=== PATIENT | female | born 1985 | race Caucasian/White ===

== ENCOUNTER 2016-12-14 09:18 | Emergency (ER) | payer OTHER ==
[~2016-12-14] VITALS: Ht 160 cm; Wt 53.0 kg
[~2016-12-14 09:18] MED LIST: AMOX875 PO; BENZ100 PO
[2016-12-14 09:23] VITALS: BP 107/66; PULSE 104; RESP 16; TEMP 98.6; O2SAT 97
[2016-12-14 09:48] LABS: BLOOD, URINE NEG (NEG); GLUCOSE,URINE NEG (NEG); KETONE, URINE NEG (NEG); NITRITE,URINE NEG (NEG)
[2016-12-14 10:00] LABS: URINE COLOR YELLOW (YELLW/STRAW)
[2016-12-14 10:01] LABS: COMMENT (UR) CULT NOT INDICATED; CULTURE IF INDICATED CULT NOT INDICATED; SQUAMOUS EPITHELIAL CELL URINE 0-5 /hpf (0-5); WBC, URINE 0-2 /hpf (0-5)
--- NOTE | 2016-12-14 10:07 | PD ---
HPI Chief Complaint: Related Problem Time Seen by Provider: 09:52 Travel History International Travel<30 days: No Contact w/Intl Traveler<30days: No Traveled to known affect area: No History of Present Illness HPI This is a 32-year-old Ab0, who is reportedly 11 weeks by dates, who presents today with complaints of right lower pelvic pain and vaginal bleeding. Patient states she woke up about 4 AM with lower abdominal crampy pain in her right lower pelvic area. She states that passed a large amount of bright red blood. She denies any clots patient denies any tissue. She reports that she was doing fine up until today. There is no reported dysuria, urgency, frequency. She states the bleeding has subsequently stopped. [facility] Past Medical History Medical History: Denies Significant Hx Diminished Hearing: No ?: LMP: 2 months ago : 2 Para: 1 Past Surgical History Surgical History: No Previous Surgery Social History Alcohol Use: No Tobacco Use: Yes (3 cigarettes a day) Substance Use: No Allergies-Medications (Allergen,Severity, Reaction): Coded Allergies: No Known Allergies (Verified , 12/14/16) Reported Meds & Prescriptions Reported Meds & Active Scripts Active No Active Prescriptions or Reported Medications Review of Systems Except as stated in HPI: all other systems reviewed are Neg General / Constitutional: No: Fever, Chills HENT: No: Headaches, Lightheadedness Cardiovascular: No: Chest Pain or Discomfort, Palpitations Respiratory: No: Cough, Shortness of Breath Gastrointestinal: Positive: Abdominal Pain (right lower pelvic), No: Nausea, Vomiting Genitourinary: Positive: Vaginal Bleeding, No: Frequency, Dysuria, Discharge Musculoskeletal: No: Weakness, Pain Neurologic: No: Weakness, Dizziness, Headache Physical Exam Narrative GENERAL: Well-nourished, well-developed patient, in no acute respiratory distress. SKIN: Focused skin assessment warm/dry. HEAD: Normocephalic/atraumatic. EYES: No scleral icterus. No injection or drainage. NECK: Supple, trachea midline. CARDIOVASCULAR: Regular rate and rhythm without murmurs, gallops, or rubs. RESPIRATORY: Breath sounds equal bilaterally. No accessory muscle use. GASTROINTESTINAL: Abdomen soft, non-tender, nondistended. Subjective right lower pelvic pain/cramping. GENITOURINARY: Normal external genitalia without lesions or erythema. Vaginal vault without blood or drainage. Cervical os was closed to fingertip. I could not appreciate the uterus above the pelvis. MUSCULOSKELETAL: No cyanosis, or edema. NEUROLOGICAL: Awake and alert. Cranial nerves II through XII intact. Motor grossly within normal limits. Five out of 5 muscle strength in all muscle groups. Normal speech. Data Data Last Documented VS Vital Signs Date Time Temp Pulse Resp B/P Pulse Ox O2 Delivery O2 Flow Rate FiO2 12/14/16 09:23 98.6 104 16 107/66 97 Room Air Orders Urinalysis - C+S If Indicated (12/14/16 09:39) Complete Blood Count With Diff (12/14/16 09:55) Beta Hcg (Quant/Titer) (12/14/16 09:55) Us Pelvis (Ques Pr/Ect)W Trans (12/14/16 10:01) Ed Urine Pregnancytest Poc (12/14/16 10:10) Labs Laboratory Tests Test 12/14/16 12/14/16 09:42 10:11 Urine Color YELLOW Urine Turbidity CLEAR Urine pH 6.0 Urine Specific [place] 1.024 Urine Protein NEG mg/dL Urine Glucose (UA) NEG mg/dL Urine Ketones NEG mg/dL Urine Occult Blood NEG Urine Nitrite NEG Urine Bilirubin NEG Urine Leukocyte Esterase NEG Urine WBC 0-2 /hpf Urine Squamous Epithelial 0-5 /hpf Cells Microscopic Urinalysis Comment CULT NOT INDICATED White Blood Count 13.4 TH/MM3 Red Blood Count 3.51 MIL/MM3 Hemoglobin 10.8 GM/DL Hematocrit 31.6 % Mean Corpuscular Volume 89.8 FL Mean Corpuscular Hemoglobin 30.7 PG Mean Corpuscular Hemoglobin 34.1 % Concent Red Cell Distribution Width 11.9 % Platelet Count 217 TH/MM3 Mean Platelet Volume 7.7 FL Neutrophils (%) (Auto) 75.7 % Lymphocytes (%) (Auto) 15.7 % Monocytes (%) (Auto) 6.4 % Eosinophils (%) (Auto) 1.6 % Basophils (%) (Auto) 0.6 % Neutrophils # (Auto) 10.1 TH/MM3 Lymphocytes # (Auto) 2.1 TH/MM3 Monocytes # (Auto) 0.9 TH/MM3 Eosinophils # (Auto) 0.2 TH/MM3 Basophils # (Auto) 0.1 TH/MM3 CBC Comment DIFF FINAL Differential Comment Human Chorionic Gonadotropin, [address] MIU/ML Quant [facility] Medical Decision Making Medical Screen Exam Complete: Yes Emergency Medical Condition: Yes Differential Diagnosis Ectopic versus threatened miscarriage versus complete miscarriage versus placental abruption Narrative Course 31-year-old female presents with complaints of vaginal bleeding. Patient reports she is 11 weeks . The patient had no blood in her vault and her os was closed. Beta-hCG was 60,000. Patient's formal ultrasound shows a 12 week 2 day fetus with normal heart tones. There is also small likely subchorionic hemorrhage noted. I discussed with the patient that this can be a isolated event or this could continue. She is instructed to have pelvic rest until evaluated by a OB physician. I will place a mandatory referral as she has been having difficulty finding an OB physician that will see her with her Medicaid. She is AB+ for her blood type. She is encouraged to take the vitamins. Diagnosis Primary Impression: Threatened miscarriage Additional Impression: small subchorionic hemorrhage Referrals: [facility] Additional Instructions: Pelvic rest until seen by OB physician Scripts No Active Prescriptions or Reported Meds Disposition: 01 DISCHARGE HOME Condition: Stable Vinicius Shepherd MD Dec 14, 2016 10:07
[2016-12-14 10:24] LABS: AUTOMATED NEUTROPHIL # 10.1 TH/MM3 (1.8-7.7); BASOPHIL # 0.1 TH/MM3 (0-0.2); BASOPHIL % 0.6 % (0.0-2.0); EOSINOPHIL # 0.2 TH/MM3 (0-0.4); EOSINOPHIL % 1.6 % (0.0-4.0); HEMATOCRIT 31.6 % (35.0-46.0); HEMO FLAGS DIFF FINAL; LYMPH % 15.7 % (9.0-44.0); LYMPHOCYTE # 2.1 TH/MM3 (1.0-4.8); MEAN CELL VOLUME 89.8 FL (80.0-100.0); MEAN CORPUSCULAR HEMOGLOBIN 30.7 PG (27.0-34.0); MEAN CORPUSCULAR HGB CONC 34.1 % (32.0-36.0); MONO % 6.4 % (0.0-8.0); NEUT % 75.7 % (16.0-70.0); PLATELET COUNT 217 TH/MM3 (150-450); RED BLOOD COUNT 3.51 MIL/MM3 (4.00-5.30); RED CELL DISTRIBUTION WIDTH 11.9 % (11.6-17.2); WHITE BLOOD COUNT 13.4 TH/MM3 (4.0-11.0)
[2016-12-14 10:52] LABS: BETA HCG QUANT 63059 MIU/ML (0-5)
--- NOTE | 2016-12-14 11:31 | RADRPT ---
EXAM DATE/TIME: 12/14/2016 10:25 [place] COMPARISON: No previous studies available for comparison. INDICATIONS : Pelvic pain and bleeding. LAB(S): Beta-hC MEDICAL HISTORY : . SURGICAL HISTORY : None. ENCOUNTER: Initial ACUITY: 1 day PAIN SCORE: 2/10 LOCATION: Bilateral pelvis MEASUREMENTS: UTERUS: 12.8 x 11.0 x 6.7 cm ENDOMETRIAL STRIPE: >20 mm RIGHT OVARY: 4.9 x 2.3 x 2.7 cm LEFT OVARY: 3.1 x 2.0 x 1.4 cm FREE FLUID: No CROWN RUMP LENGTH: 6.03 = 12 WKS 4 DAYS FHR: 167 BPM FINDINGS: UTERUS: The myometrium has homogeneous echotexture without mass. The there is a single intrauterine gestatio nal sac measuring 7.1 x 3.0 x 7.2 cm. Fetus is identified with crown-rump length measurement of 5.8 c m giving an estimated gestational age of 12 weeks and 2 days. M-mode Doppler documents a heart rate of 167 beats per minute. There is a crescentic hypoechoic to anechoic structure adjacent to this gestational sac measuring approximately 2.5 x 0.8 x 1.2 cm. RIGHT OVARY: Ovary contains no mass or significant cystic lesion. LEFT OVARY: Ovary contains no mass or significant cystic lesion. MISCELLANEOUS: No free fluid. CONCLUSION: 1. There is a single fetus identified with estimated age of 12 weeks and 2 days. Normal heart r ate is documented. 2. A crescentic hypoechoic to anechoic structure adjacent to the gestational sac likely represents torres bacute to chronic subchorionic hemorrhage. Severo Wong MD on December 14, 2016 at 11:26 Board Certified Radiologist. This report was verified electronically.
[2016-12-14 12:16] VITALS: BP 93/59
[2017-02-16] MEDS ORDERED: CIPR0.3S LEFT EAR (11:18)
== END 2016-12-14 12:18 | disposition home or self-care (01) ==
LOC: PHED 09:18
DX: O20.0 Threatened abortion (principal); O20.8 Other hemorrhage in early pregnancy; Z3A.11 11 weeks gestation of pregnancy
CPT/HCPCS: 76700; 76817; 81001; 84702; 84703; 85025; 99285

== ENCOUNTER 2017-07-02 02:32 | Inpatient (IN) | payer OTHER ==
[2017-07-02] VITALS (122 sets, daily range): BP systolic 87–125; BP diastolic 42–81; PULSE 61–108; RESP 15–20; TEMP 97.7–100.7; O2SAT 96–100
[~2017-07-02] VITALS: Ht 165.1 cm; Wt 67.0 kg
[2017-07-02] MEDS ORDERED: LACTATED RINGER'S 1000 ML INJ 1,000 ML IV PRN (03:04)
[2017-07-02] MEDS ORDERED: CITRIC ACID-SODIUM CITRATE LIQ 30 ML UDC PO SCH (03:15)
[2017-07-02] MEDS ORDERED: OXYTOCIN 30 UNITS-500ML PREMIX 500 ML IV ONE (03:15)
[2017-07-02] MEDS ORDERED: SODIUM CHLORID 0.9% 500 ML INJ 500 ML IV PRN (03:15)
[2017-07-02] MEDS ORDERED: ONDANSETRON HCL 4 MG/2 ML VIAL IV PUSH PRN (03:15)
[2017-07-02] MEDS ORDERED: LIDOCAINE HCL 1% 50 ML VIAL INFIL PRN (03:15)
[2017-07-02] MEDS ORDERED: LIDOCAINE HCL 1% 50 ML VIAL I-DERMAL PRN (03:15)
[2017-07-02] MEDS ORDERED: MINERAL OIL 10 ML VIAL TOPICAL PRN (03:15)
[2017-07-02] MEDS ORDERED: SODIUM CHLOR 0.9% 1000 ML INJ 1,000 ML IV PRN (03:24)
--- NOTE | 2017-07-02 03:26 | PD ---
HPI Chief Complaint CTX Date Seen: Jul 02, 2017 Time Seen: 03:15 Travel History International Travel<30 Days: No Contact w/Intl Traveler<30Days: No History of Present Illness HPI Patient is a 32 year old at 40 and 6/7 weeks gestation by first trimester ultrasound, [place] 06/26/2017, who presents to the OB ED with contractions and having made cervical change since office visit on 07/01. She denies any other symptoms at this time and notes that her has been uncomplicated. She denies leakage of fluid, vaginal bleeding, and contractions. She feels baby moving regularly. She denies ALEXANDER/N/V/D/fever/sick contacts/SOB/ calf pain/dizziness/seeing spots. OB care is with [facility]. History Past Medical History Narrative Medical Migraine Obstetric History Obstetric History 031 3 spontaneous abortions Failed 1 hour, passed 3 hour GTT Lab in 20 40 week AGA male infant 7 lbs. 7 oz. vaginal delivery at [place] Rubella nonimmune Past Surgical History Surgical History: No Previous Surgery Family History Family History: Negative Social History Alcohol Use: No Tobacco Use: Yes (3-4 cigarettes daily, taking smoking cessation class) Allergies-Medications (Allergen,Severity, Reaction): Coded Allergies: No Known Allergies (Verified Adverse Reaction, Unknown, 05/18/17) Home Meds No Active Prescriptions or Reported Meds Review of Systems Except as stated in HPI: all other systems reviewed are Neg Physical Exam Narrative GENERAL: Well-nourished, well-developed patient. SKIN: Warm and dry. HEAD: Normocephalic and atraumatic. EYES: No scleral icterus. No injection or drainage. ENT: No nasal drainage noted. Mucous membranes pink. Airway patent. NECK: Supple, trachea midline. No JVD. CARDIOVASCULAR: Regular rate and rhythm without murmurs, gallops, or rubs. RESPIRATORY: Breath sounds equal bilaterally. No accessory muscle use. ABDOMEN/GI: Abdomen soft, non-tender, bowel sounds present, no rebound, no guarding Gravid to 40 weeks size GENITOURINARY: External Genitalia: intact and normal in appearance BUS glands: 2-3/100/-3 Presentation: vertex Membranes: intact Uterine Contractions: every 2-3 min FHT's: Category: 1 Baseline: 120s Reactive: no Variability: mof Decels: absent EXTREMITIES: No cyanosis or edema. BACK: Nontender without obvious deformity. No CVA tenderness. NEUROLOGICAL: Awake and alert. Motor and sensory grossly within normal limits. Five out of 5 muscle strength in all muscle groups. Normal speech. Data Data Vital Signs Reviewed: Yes Orders Orders Ob (2e) Additional Admit Info (07/02/17 02:57) Vital Signs (Adult) .ON ADMISSION (07/02/17 03:04) ^ Labor Status (07/02/17 03:04) ^ Non Stress Test (07/02/17 03:04) Admit To Inpatient (07/02/17 ) Code Status (07/02/17 03:04) Vital Signs (Adult) .Per protocol (07/02/17 03:04) Activity Oob Ad Lisbeth (07/02/17 03:04) Heart (07/02/17 03:04) Amnioinfusion (07/02/17 03:04) Urinary Catheter Management .ONCE (07/02/17 03:04) Diet Liquid (07/02/17 Breakfast) Lactated Ringer's 1000 Ml Inj (Lr 1000 M (07/02/17 03:04) Lactated Ringer's 1000 Ml Inj (Lr 1000 M (07/02/17 03:04) Sodium Chlorid 0.9% 500 Ml Inj (Ns 500 M (07/02/17 03:15) Sodium Chlor 0.9% 1000 Ml Inj (Ns 1000 M (07/02/17 03:24) Lidocaine 1% Inj (50 Ml) (Xylocaine 1% I (07/02/17 03:15) Citric Acid-Sodium Citrate Liq (Bicitra (07/02/17 03:15) Ondansetron Inj (Zofran Inj) (07/02/17 03:15) Fentanyl Inj (Fentanyl Inj) (07/02/17 03:15) Fentanyl Inj (Fentanyl Inj) (07/02/17 03:15) Complete Blood Count With Diff (07/02/17 03:04) Hold Clot (07/02/17 03:04) Abo/Rh Blood Type (07/02/17 03:04) Urinalysis - C+S If Indicated (07/02/17 03:04) Drug Screen, Random Urine (07/02/17 03:04) Ob/Psych Drug Screen, Urine (07/02/17 03:04) Resp Oxygen Non Rebreathe Mask (07/02/17 ) ^ Epidural / Intrathecal Infus (07/02/17 03:04) Oxytocin 30 Units-500ml Premix (Pitocin (07/02/17 03:15) Lidocaine 1% Inj (50 Ml) (Xylocaine 1% I (07/02/17 03:15) Light Mineral Oil (Muri-Lube Oil) (07/02/17 03:15) Inpatient Certification (07/02/17 ) Specimen To Be Collected PRN (07/02/17 03:04) Specimen To Be Collected PRN (07/02/17 03:04) Group B Strep: Negative MDM Medical Record Reviewed: Yes Narrative Course / MDM 32-year-old at 40 and 6/7 weeks who presents to the ED in labor. Intrauterine : Category 1 tracing Expect vaginal delivery, continue with expectant management at this time Epidural for pain Order CBC, UA, UDS per protocol IV fluids per protocol Monitor heart tones Routine care GBS is negative Rubella non-immune Tobacco use: current every day smoker 3-4 cigarettes DW triage nurse. Dr. Lewis agrees with admission Scripts No Active Prescriptions or Reported Meds Eusebia Enrique MD Jul 02, 2017 03:26
--- NOTE | 2017-07-02 03:30 | HHI.HP ---
HPI Chief Complaint Labor Date Seen: Jul 02, 2017 Time Seen: 03:27 Travel History International Travel<30 Days: No Contact w/Intl Traveler<30Days: No History of Present Illness HPI Patient is a 32 year old at 40 and 6/7 weeks gestation by first trimester ultrasound, [place] 06/26/2017, who presents to the OB ED with contractions and having made cervical change since office visit on 07/01. She denies any other symptoms at this time and notes that her has been uncomplicated. She denies leakage of fluid, vaginal bleeding, and contractions. She feels baby moving regularly. She denies ALEXANDER/N/V/D/fever/sick contacts/SOB/ calf pain/dizziness/seeing spots. OB care is with [facility]. History Past Medical History Narrative Medical Migraine Obstetric History Obstetric History 031 3 spontaneous abortions Failed 1 hour, passed 3 hour GTT Live in 2010: 40 week AGA male infant 7 lbs. 7 oz. vaginal delivery at [place] Rubella nonimmune Past Surgical History Surgical History: No Previous Surgery Family History Family History: Negative Social History Alcohol Use: No Tobacco Use: Yes (3-4 cigarettes daily, taking smoking cessation class) Substance Abuse: No Allergies-Medications (Allergen,Severity, Reaction): Coded Allergies: No Known Allergies (Verified Adverse Reaction, Unknown, 05/18/17) Home Meds No Active Prescriptions or Reported Meds Review of Systems Except as stated in HPI: all other systems reviewed are Neg Physical Exam Narrative GENERAL: Well-nourished, well-developed patient. SKIN: Warm and dry. HEAD: Normocephalic and atraumatic. EYES: No scleral icterus. No injection or drainage. ENT: No nasal drainage noted. Mucous membranes pink. Airway patent. NECK: Supple, trachea midline. No JVD. CARDIOVASCULAR: Regular rate and rhythm without murmurs, gallops, or rubs. RESPIRATORY: Breath sounds equal bilaterally. No accessory muscle use. ABDOMEN/GI: Abdomen soft, non-tender, bowel sounds present, no rebound, no guarding Gravid to 40 weeks size GENITOURINARY: External Genitalia: intact and normal in appearance BUS glands: 2-3/100/-3 Presentation: vertex Membranes: intact Uterine Contractions: every 2-3 min FHT's: Category: 1 Baseline: 120s Reactive: no Variability: mof Decels: absent EXTREMITIES: No cyanosis or edema. BACK: Nontender without obvious deformity. No CVA tenderness. NEUROLOGICAL: Awake and alert. Motor and sensory grossly within normal limits. Five out of 5 muscle strength in all muscle groups. Normal speech. Caprini VTE Risk Assessment Caprini VTE Risk Assessment: Mod/High Risk (score >= 2) Caprini Risk Assessment Model Point Value = 1 Point Value = 2 Point Value = 3 Point Value = 5 Age 41-60 Minor surgery BMI > 25 kg/m2 Swollen legs Varicose veins or History of unexplained or recurrent spontaneous Oral contraceptives or hormone replacement Sepsis (< 1 month) Serious lung disease, including pneumonia (< 1 month) Abnormal pulmonary function Acute myocardial infarction Congestive heart failure (< 1 month) History of inflammatory bowel disease Medical patient at bed rest Age 61-74 Arthroscopic surgery Major open surgery (> 45 min) Laparoscopic surgery (> 45 min) Malignancy Confined to bed (> 72 hours) Immobilizing plaster cast Central venous access Age >= 75 History of VTE Family history of VTE Factor V Leiden Prothrombin [id number] Lupus anticoagulant Anticardiolipin antibodies Elevated serum homocysteine Heparin-induced thrombocytopenia Other congenital or acquired thrombophilia Stroke (< 1 month) Elective arthroplasty Hip, pelvis, or leg fracture Acute spinal cord injury (< 1 month) Prophylaxis Regimen Total Risk Factor Score Risk Level Prophylaxis Regimen 0-1 Low Early ambulation 2 Moderate Order ONE of the following: *Sequential Compression Device (SCD) *Heparin 5000 units SQ BID 3-4 Higher Order ONE of the following medications: *Heparin 5000 units SQ TID *Enoxaparin/Lovenox 40 mg SQ daily (WT < 150 kg, CrCl > 30 mL/min) *Enoxaparin/Lovenox 30 mg SQ daily (WT < 150 kg, CrCl > 10-29 mL/min) *Enoxaparin/Lovenox 30 mg SQ BID (WT < 150 kg, CrCl > 30 mL/min) AND/OR *Sequential Compression Device (SCD) 5 or more Highest Order ONE of the following medications: *Heparin 5000 units SQ TID (Preferred with Epidurals) *Enoxaparin/Lovenox 40 mg SQ daily (WT < 150 kg, CrCl > 30 mL/min) *Enoxaparin/Lovenox 30 mg SQ daily (WT < 150 kg, CrCl > 10-29 mL/min) *Enoxaparin/Lovenox 30 mg SQ BID (WT < 150 kg, CrCl > 30 mL/min) AND *Sequential Compression Device (SCD) Data Data Vital Signs Reviewed: Yes Orders Orders Ob (2e) Additional Admit Info (07/02/17 02:57) Vital Signs (Adult) .ON ADMISSION (07/02/17 03:04) ^ Labor Status (07/02/17 03:04) ^ Non Stress Test (07/02/17 03:04) Admit To Inpatient (07/02/17 ) Code Status (07/02/17 03:04) Vital Signs (Adult) .Per protocol (07/02/17 03:04) Activity Oob Ad Lisbeth (07/02/17 03:04) Heart (07/02/17 03:04) Amnioinfusion (07/02/17 03:04) Urinary Catheter Management .ONCE (07/02/17 03:04) Diet Liquid (07/02/17 Breakfast) Lactated Ringer's 1000 Ml Inj (Lr 1000 M (07/02/17 03:04) Lactated Ringer's 1000 Ml Inj (Lr 1000 M (07/02/17 03:04) Sodium Chlorid 0.9% 500 Ml Inj (Ns 500 M (07/02/17 03:15) Sodium Chlor 0.9% 1000 Ml Inj (Ns 1000 M (07/02/17 03:24) Lidocaine 1% Inj (50 Ml) (Xylocaine 1% I (07/02/17 03:15) Citric Acid-Sodium Citrate Liq (Bicitra (07/02/17 03:15) Ondansetron Inj (Zofran Inj) (07/02/17 03:15) Fentanyl Inj (Fentanyl Inj) (07/02/17 03:15) Fentanyl Inj (Fentanyl Inj) (07/02/17 03:15) Complete Blood Count With Diff (07/02/17 03:04) Hold Clot (07/02/17 03:04) Abo/Rh Blood Type (07/02/17 03:04) Urinalysis - C+S If Indicated (07/02/17 03:04) Drug Screen, Random Urine (07/02/17 03:04) Ob/Psych Drug Screen, Urine (07/02/17 03:04) Resp Oxygen Non Rebreathe Mask (07/02/17 ) ^ Epidural / Intrathecal Infus (07/02/17 03:04) Oxytocin 30 Units-500ml Premix (Pitocin (07/02/17 03:15) Lidocaine 1% Inj (50 Ml) (Xylocaine 1% I (07/02/17 03:15) Light Mineral Oil (Muri-Lube Oil) (07/02/17 03:15) Inpatient Certification (07/02/17 ) Specimen To Be Collected PRN (07/02/17 03:04) Specimen To Be Collected PRN (07/02/17 03:04) Group B Strep: Negative Assessment/Plan Problem List: (1) 40 weeks gestation of ICD Codes: Z3A.40 - 40 weeks gestation of Status: Acute (2) Smoking (tobacco) complicating , third trimester ICD Codes: O99.333 - Smoking (tobacco) complicating , third trimester Status: Chronic (3) Rubella non-immune status, antepartum ICD Codes: O99.89 - Other specified diseases and conditions complicating , childbirth and the puerperium; Z28.3 - Underimmunization status Status: Chronic Assessment and Plan 32-year-old at 40 and 6/7 weeks who presents to the ED in labor. Intrauterine : Category 1 tracing Expect vaginal delivery, continue with expectant management at this time Epidural for pain Order CBC, UA, UDS per protocol IV fluids per protocol Monitor heart tones Routine care GBS is negative Rubella non-immune Tobacco use: current every day smoker 3-4 cigarettes DW triage nurse. Dr. Lewis agrees with admission Eusebia Enrique MD Jul 02, 2017 03:30
[2017-07-02] MEDS ORDERED: fentaNYL 2MCG-BUPIV 0.125% INJ 100 ML ONE ×2 (03:38→03:41)
[2017-07-02 03:47] LABS: AUTOMATED NEUTROPHIL # 13.1 TH/MM3 (1.8-7.7); BASOPHIL # 0.1 TH/MM3 (0-0.2); BASOPHIL % 0.4 % (0.0-2.0); EOSINOPHIL # 0.1 TH/MM3 (0-0.4); EOSINOPHIL % 0.7 % (0.0-4.0); HEMATOCRIT 31.7 % (35.0-46.0); HEMOGLOBIN 10.6 GM/DL (11.6-15.3); LYMPH % 13.1 % (9.0-44.0); LYMPHOCYTE # 2.2 TH/MM3 (1.0-4.8); MEAN CELL VOLUME 82.5 FL (80.0-100.0); MEAN CORPUSCULAR HEMOGLOBIN 27.7 PG (27.0-34.0); MEAN CORPUSCULAR HGB CONC 33.6 % (32.0-36.0); MEAN PLATELET VOLUME 7.5 FL (7.0-11.0); MONO % 7.8 % (0.0-8.0); MONOCYTE # 1.3 TH/MM3 (0-0.9); PLATELET COUNT 317 TH/MM3 (150-450); RED BLOOD COUNT 3.84 MIL/MM3 (4.00-5.30); RED CELL DISTRIBUTION WIDTH 13.7 % (11.6-17.2); WHITE BLOOD COUNT 16.8 TH/MM3 (4.0-11.0)
[2017-07-02] MEDS: LACTATED RINGER'S 1000 ML INJ 1,000 ML IV SCH ×2 (03:51→12:46)
[2017-07-02 03:52] LABS: BACTERIA, URINE RARE /hpf; BILIRUBIN, URINE NEG (NEG); BLOOD, URINE NEG (NEG); GLUCOSE,URINE NEG (NEG); HYALINE CAST, URINE 1 /lpf (RARE); KETONE, URINE NEG (NEG); MUCUS URINE FEW /lpf (OCC); NITRITE,URINE NEG (NEG); SQUAMOUS EPITHELIAL CELL URINE 1 /hpf (0-5); URINE COLOR YELLOW (YELLW/STRAW); URINE LEUKOCYTE ESTERASE NEG (NEG)
[2017-07-02] MEDS ORDERED: Prenatal Vitamin PO (03:53)
[2017-07-02] MEDS ORDERED: NO SYSTEM NARCOTICS PRN (04:00)
[2017-07-02] MEDS ORDERED: fentaNYL 2MCG-BUPIV 0.125% 100 ML EPIDURAL SCH (04:00)
[2017-07-02] MEDS ORDERED: DO NOT ADMINISTER ANTICOAGULANTS PRN (04:00)
[2017-07-02] MEDS ORDERED: ePHEDrine/NS 25 MG/5 ML SYRINGE IV PUSH PRN (04:30)
--- NOTE | 2017-07-02 09:45 | PD.LABORPN ---
Subjective Subjective Patient lying in bed, resting comfortably. Objective Vital Signs Vital Signs Date Time Temp Pulse Resp B/P (MAP) Pulse Ox O2 Delivery O2 Flow Rate FiO2 07/02/17 08:26 18 07/02/17 08:15 71 07/02/17 08:10 79 07/02/17 08:05 67 07/02/17 08:00 69 18 107/69 (82) 07/02/17 08:00 69 07/02/17 07:55 70 07/02/17 07:50 82 07/02/17 07:45 68 07/02/17 07:40 66 07/02/17 07:35 67 07/02/17 07:30 70 18 110/67 (81) 07/02/17 07:25 68 07/02/17 07:20 72 07/02/17 07:15 69 07/02/17 07:10 73 07/02/17 07:05 72 07/02/17 07:00 69 109/72 (84) 07/02/17 06:55 70 07/02/17 06:50 84 07/02/17 06:45 64 07/02/17 06:40 69 07/02/17 06:35 65 07/02/17 06:30 97/67 (77) 07/02/17 06:30 68 07/02/17 06:25 64 07/02/17 06:20 66 07/02/17 06:15 64 07/02/17 06:10 65 07/02/17 06:05 68 07/02/17 06:00 72 07/02/17 06:00 104/68 (80) 07/02/17 05:55 72 07/02/17 05:50 62 18 05:50 99 07/02/17 05:45 73 07/02/17 05:45 99 07/02/18 05:45 100/64 (76) 07/02/17 05:45 72 07/02/17 05:40 66 99 07/02/17 05:40 69 07/02/17 05:35 64 98 07/02/17 05:35 64 07/02/17 05:30 68 104/64 (77) 99 07/02/17 05:30 61 07/02/17 05:30 68 07/02/17 05:25 70 3/2/18 05:25 99 3/2/18 05:20 69 3/2/18 05:20 98 3/2/18 05:15 72 3/2/18 05:15 100/62 (75) 99 3/2/18 05:15 70 3/2/18 05:10 71 3/2/18 05:10 100 3/2/18 05:05 99 3/2/18 05:05 65 3/2/18 05:00 92/58 (69) 99 3/2/18 05:00 73 3/2/18 05:00 67 3/2/18 04:55 65 3/2/18 04:55 99 3/2/18 04:50 63 3/2/18 04:50 99 3/2/18 04:45 61 3/2/18 04:45 71 105/63 (77) 100 3/2/18 04:40 99 3/2/18 04:40 82 3/2/18 04:35 100 3/2/18 04:35 72 3/2/18 04:30 105/64 (78) 3/2/18 04:30 99 3/2/18 04:30 68 3/2/18 04:30 66 3/2/18 04:25 71 100 3/2/18 04:20 69 99 3/2/18 04:17 97.7 15 3/2/18 04:15 70 105/67 (80) 98 3/2/18 04:15 71 3/2/18 04:10 73 104/68 (80) 3/2/18 04:10 98 3/2/18 04:10 72 3/2/18 04:05 77 3/2/18 04:05 73 103/62 (76) 100 3/2/18 04:00 75 3/2/18 04:00 74 106/64 (78) 100 3/2/18 03:59 20 3/2/18 03:55 115/78 (90) 3/2/18 03:55 96 3/2/18 03:55 100 3/2/18 03:55 95 3/2/18 03:50 80 3/2/18 03:50 105/66 (79) 3/2/18 03:50 99 3/2/18 03:50 74 3/2/18 03:48 80 125/67 (86) 07/02/17 03:45 87 07/02/17 03:40 71 07/02/17 03:35 73 07/02/17 03:30 76 07/02/17 03:25 76 07/02/17 03:15 82 07/02/17 03:10 84 07/02/17 03:05 77 07/02/17 03:00 88 07/02/17 02:55 90 Objective Pelvic Exam: Cervix: Anterior Dilatation: 8 Effacement: 100 Station: -1 Presentation: Vertex Membranes: AROM Uterine Contractions: Consistent FHT's: Category: 1 Baseline: 130 Reactive: Yes Variability: Moderate Decels: No Assessment/Plan Problem List: (1) 40 weeks gestation of ICD Codes: Z3A.40 - 40 weeks gestation of Status: Acute (2) Smoking (tobacco) complicating , third trimester ICD Codes: O99.333 - Smoking (tobacco) complicating , third trimester Status: Chronic (3) Rubella non-immune status, antepartum ICD Codes: O99.89 - Other specified diseases and conditions complicating , childbirth and the puerperium; Z28.3 - Underimmunization status Status: Chronic Assessment and Plan 32-year-old at 40/6 currently in active labor. -AROM performed -continue expectant management -FHT monitoring -FHT category 1, reassuring. SARAY Alejandre,Elmer Alva MD R1 Jul 02, 2017 09:45
[2017-07-02] MEDS ORDERED: OXYTOCIN 30 UNITS-500ML PREMIX 500 ML IV PRN (13:00)
--- NOTE | 2017-07-02 15:15 | PD.OB.DELI ---
Weeks gestation: 40 Pt started active labor?: Yes Medical induction of labor?: No Artificial rupture of membrane: Yes Artificial ROM date: Jul 02, 2017 Artifical ROM time: 09:11 Anesthesia: Epidural Episiotomy: None Vaginal Delivery: Normal Presentation: Occiput anterior Nuchal Cord: x1 Delayed cord clamping (45 sec): Yes Infant: Male Delivery date: Jul 02, 2017 Delivery time: 14:54 One Minute : 8 Five Minute : 9 Weight: 3605 Placenta: Spontaneous delivery Laceration: No lacerations Estimated blood loss: 100 cc Elmer Alejandre MD R1 Jul 02, 2017 15:15
[2017-07-02] MEDS ORDERED: SODIUM CHLORIDE 0.9% FLUSH 10 ML FLUSH IV FLUSH PRN (15:30)
[2017-07-02] MEDS ORDERED: ZOLPIDEM TARTRATE 5 MG TAB PO PRN (15:30)
[2017-07-02] MEDS ORDERED: DOCUSATE SODIUM 50 MG/SENNA 8.6 MG TAB PO PRN (15:30)
[2017-07-02] MEDS ORDERED: BENZOCAINE 20% TOPICAL SPRAY 60 ML CAN TOPICAL PRN (15:30)
[2017-07-02] MEDS ORDERED: ONDANSETRON ODT 4 MG TAB PO PRN (15:30)
[2017-07-02] MEDS ORDERED: ALUMINUM/MAGNESIUM/SIMETH 30 ML CUP PO PRN (15:30)
[2017-07-02] MEDS ORDERED: WITCH HAZEL 50%/GLYCERIN 12.5% 40 PAD JAR TOPICAL PRN (15:30)
[2017-07-02] MEDS ORDERED: OXYTOCIN 30 UNITS-500ML PREMIX 500 ML IV SCH (15:30)
[2017-07-02] MEDS ORDERED: ACETAMINOPHEN 325 MG TAB PO PRN (15:30)
[2017-07-02] MEDS ORDERED: MEASLES, MUMPS, RUBELLA VACCINE 0.5 ML VIAL SQ ONE (16:00)
[2017-07-02] MEDS ORDERED: DIPHTH/TETANUS/ACEL PERTUSSIS (BOOSTER) 0.5 ML VIAL/PFS IM ONE (16:00)
[2017-07-02] MEDS ORDERED: SODIUM CHLORIDE 0.9% FLUSH 10 ML FLUSH IV FLUSH SCH (21:00)
[2017-07-02] MEDS: IBUPROFEN 800 MG TAB PO PRN (21:03)
[2017-07-03] MEDS: IBUPROFEN 800 MG TAB PO PRN ×2 (05:50→14:58)
--- NOTE | 2017-07-03 07:52 | HHI.OB ---
Subjective Post Day: 1 Remarks Patient stable post day 1, afebrile vital signs stable Patient tolerating diet, ambulating to the bathroom, bleeding like a period at this time Objective Vitals/I&O Vital Signs Date Time Temp Pulse Resp B/P (MAP) Pulse Ox O2 Delivery O2 Flow Rate FiO2 07/02/17 20:00 98.1 74 18 101/54 (70) 96 07/02/17 17:16 18 07/02/17 17:00 66 104/59 (74) 07/02/17 17:00 18 07/02/17 16:45 73 107/65 (79) 07/02/17 16:30 80 18 111/61 (78) 07/02/17 16:15 62 107/68 (81) 07/02/17 16:01 71 111/58 (75) 07/02/17 16:00 98.3 07/02/17 15:55 65 112/64 (80) 07/02/17 15:53 18 07/02/17 15:30 77 18 120/64 (82) 07/02/17 15:02 89 109/54 (72) 07/02/17 15:00 18 07/02/17 14:50 100 07/02/17 14:40 100.7 95 18 07/02/17 14:35 91 07/02/17 14:30 91 87/42 (57) 07/02/17 14:10 89 07/02/17 14:05 91 07/02/17 14:00 90/50 (63) 07/02/17 14:00 88 07/02/17 13:40 18 07/02/17 13:15 18 07/02/17 13:05 82 07/02/17 13:00 80 07/02/17 13:00 112/77 (89) 07/02/17 12:45 98.1 07/02/17 12:45 18 07/02/17 12:40 108 07/02/17 12:35 98 07/02/17 12:30 81 107/62 (77) 07/02/17 12:30 78 07/02/17 12:00 77 07/02/17 11:45 18 07/02/17 11:40 70 07/02/17 11:35 71 3/2/18 11:30 68 110/68 (82) 07/02/17 11:00 18 07/02/17 11:00 98.7 07/02/17 11:00 106/65 (79) 07/02/17 10:30 72 92/52 (65) 07/02/17 10:10 68 07/02/17 10:05 85 07/02/17 10:00 75 101/56 (71) 07/02/17 10:00 98.3 07/02/17 09:55 18 07/02/17 09:40 66 07/02/17 09:35 69 07/02/17 09:30 65 07/02/17 09:30 68 117/75 (89) 07/02/17 09:25 66 07/02/17 09:20 68 07/02/17 09:15 80 07/02/17 09:10 70 07/02/17 09:05 71 07/02/17 09:00 70 18 104/81 (89) 07/02/17 08:55 76 07/02/17 08:50 77 07/02/17 08:45 71 07/02/17 08:40 69 07/02/17 08:35 71 07/02/17 08:30 65 07/02/17 08:30 101/67 (78) 07/02/17 08:26 18 07/02/17 08:15 71 07/02/17 08:10 79 07/02/17 08:05 67 07/02/17 08:00 69 18 107/69 (82) 07/02/17 08:00 69 07/02/17 07:55 70 07/02/17 07:50 82 Objective Remarks GENERAL: Well-nourished, well-developed patient. CARDIOVASCULAR: Regular rate and rhythm without murmurs, gallops, or rubs. RESPIRATORY: Breath sounds equal bilaterally. No accessory muscle use. ABDOMEN/GI: Abdomen soft, non-tender. Fundus: Firm, non-tender at umbilicus. GENITOURINARY: Light to moderate bleeding. EXTREMITIES: No cyanosis or edema, non-tender, without signs of DVT. Medications and IVs Current Medications Medications (Trade) Dose Ordered Sig/Michael Route Start Time Stop Time Status Last Admin Fentanyl/ Bupivacaine HCl 100 ml @ 12 mls/hr TITRATE EPIDURAL 07/02/17 04:00 07/02/17 04:46 Oxytocin 500 ml @ 0 mls/hr TITRATE PRN IV 07/02/17 13:00 (NS Flush) 2 ml BID IV FLUSH 07/02/17 21:00 (NS Flush) 2 ml UNSCH PRN IV FLUSH 07/02/17 15:30 (Tylenol) 650 mg Q4H PRN PO 07/02/17 15:30 (Motrin) 800 mg Q8H PRN PO 07/02/17 15:30 07/03/17 05:50 (Americaine 20% Top Spr) 1 spray Q4H PRN TOPICAL 07/02/17 15:30 (Tucks Pads) 1 applic QID PRN TOPICAL 07/02/17 15:30 (Patricia-Colace) 2 tab Q12H PRN PO 07/02/17 15:30 (Ambien) 5 mg HS PRN PO 07/02/17 15:30 (Mag-Al Plus Susp Liq) 15 ml Q8H PRN PO 07/02/17 15:30 (Zofran Odt) 4 mg Q6H PRN PO 07/02/17 15:30 Assessment/Plan Problem List: (1) 40 weeks gestation of ICD Codes: Z3A.40 - 40 weeks gestation of Status: Acute (2) Smoking (tobacco) complicating , third trimester ICD Codes: O99.333 - Smoking (tobacco) complicating , third trimester Status: Chronic (3) Rubella non-immune status, antepartum ICD Codes: O99.89 - Other specified diseases and conditions complicating , childbirth and the puerperium; Z28.3 - Underimmunization status Status: Chronic Assessment and Plan 32-year-old who is now 1 day vaginal delivery uncomplicated Plan to begin em advancements and care Baby is doing well at this time and likely mother and baby will be discharged tomorrow GBS is negative Rubella non-immune Tobacco use: current every day smoker 3-4 cigarettes DW triage nurse. Dr. Lewis agrees with admission Pk Rothman II, MD Jul 03, 2017 07:51
[2017-07-03 08:00] VITALS: BP 98/66; PULSE 75; RESP 18; TEMP 98.2
[2017-07-03] MEDS ORDERED: IBUP-232 PO (09:50)
--- NOTE | 2017-07-03 09:51 | HHI.DCPOC ---
Discharge Care Plan Diagnosis: (1) Normal vaginal delivery Report Symptoms to Your Doctor -Temperature above 100.5 degrees -Redness, of incision or excessive or foul smelling drainage -Unusual pain or calf pain -Increased vaginal bleeding -Painful or difficulty urinating -Feelings of extreme sadness or anxiety after 2 weeks Goals to Promote Your Health * To prevent worsening of your condition and complications * To maintain your health at the optimal level Directions to Meet Your Goals Take your medications as prescribed Follow your dietary instruction Follow activity as directed Ensure plenty of rest for recovery Drink fluids for hydration Keep your appointments as scheduled Take your immunizations and boosters as scheduled If your symptoms worsen call your PCP, if no PCP go to Urgent Care Center or Emergency Room Smoking is Dangerous to Your Health. Avoid second hand smoke Call the 24-hour crisis hotline for domestic abuse at Juan Cm MD Jul 03, 2017 09:51
[2017-07-03 21:00] VITALS: PULSE 18; PULSE 75; RESP 18; TEMP 97.9
[2017-07-04 07:20] VITALS: BP 96/61; PULSE 68
[2017-07-04 07:25] VITALS: PULSE 68; RESP 16
[2017-07-04 07:55] VITALS: PULSE 68
--- NOTE | 2017-07-04 08:24 | HHI.OB ---
Subjective Remarks 32 year old s/p at 40 wks gestation, PPD 2. AFVSS. Patient reports she is feeling well. Bleeding is decreasing and pain is well-controlled. She is breast feeding and bonding well with baby. Ambulating without difficulties. She is tolerating a diet without nausea or vomiting. She has not had a bowel movement. She has passed gas. Denies chest pain, dysuria, shortness of breath, or calf pain. Objective Vitals/I&O Vital Signs Date Time Temp Pulse Resp B/P (MAP) Pulse Ox O2 Delivery O2 Flow Rate FiO2 07/04/17 07:55 68 07/04/17 07:25 68 07/04/17 07:20 68 07/04/17 07:20 96/61 (73) 07/03/17 21:00 97.9 18 18 07/03/17 21:00 75 Objective Remarks GENERAL: Well-nourished, well-developed patient. CARDIOVASCULAR: Regular rate and rhythm without murmurs, gallops, or rubs. RESPIRATORY: Breath sounds equal bilaterally. No accessory muscle use. ABDOMEN/GI: Abdomen soft, non-tender. Fundus: Firm, non-tender at umbilicus. GENITOURINARY: Light to moderate bleeding. EXTREMITIES: No cyanosis or edema, non-tender, without signs of DVT. Medications and IVs Current Medications Medications (Trade) Dose Ordered Sig/Michael Route Start Time Stop Time Status Last Admin Fentanyl/ Bupivacaine HCl 100 ml @ 12 mls/hr TITRATE EPIDURAL 07/02/17 04:00 07/02/17 04:46 Oxytocin 500 ml @ 0 mls/hr TITRATE PRN IV 07/02/17 13:00 (NS Flush) 2 ml BID IV FLUSH 07/02/17 21:00 (NS Flush) 2 ml UNSCH PRN IV FLUSH 07/02/17 15:30 (Tylenol) 650 mg Q4H PRN PO 07/02/17 15:30 (Motrin) 800 mg Q8H PRN PO 07/02/17 15:30 07/03/17 14:58 (Americaine 20% Top Spr) 1 spray Q4H PRN TOPICAL 07/02/17 15:30 07/03/17 12:10 (Tucks Pads) 1 applic QID PRN TOPICAL 07/02/17 15:30 (Patricia-Colace) 2 tab Q12H PRN PO 07/02/17 15:30 (Ambien) 5 mg HS PRN PO 07/02/17 15:30 (Mag-Al Plus Susp Liq) 15 ml Q8H PRN PO 07/02/17 15:30 (Zofran Odt) 4 mg Q6H PRN PO 07/02/17 15:30 Assessment/Plan Problem List: (1) 40 weeks gestation of ICD Codes: Z3A.40 - 40 weeks gestation of Status: Acute (2) Smoking (tobacco) complicating , third trimester ICD Codes: O99.333 - Smoking (tobacco) complicating , third trimester Status: Chronic (3) Rubella non-immune status, antepartum ICD Codes: O99.89 - Other specified diseases and conditions complicating , childbirth and the puerperium; Z28.3 - Underimmunization status Status: Chronic Assessment and Plan 32-year-old who is now 2 day vaginal delivery uncomplicated Continue normal care Mother cleared for discharge today GBS is negative Rubella non-immune Tobacco use: current every day smoker 3-4 cigarettes Juan Cm MD Jul 04, 2017 08:24
[2017-07-04] MEDS: IBUPROFEN 800 MG TAB PO PRN (09:18)
== END 2017-07-04 12:14 | disposition home or self-care (01) | DRG 775 ==
LOC: HOBED 02:32 → H2EB 03:00 → H1EA 19:48
PROVIDERS: ADMIT Obstetrics & Gynecology; ATTEND Obstetrics & Gynecology
PROC: 10E0XZZ Delivery of Products of Conception, External Approach (ICD-10-PCS; principal; 2017-07-02)
PROC: 10907ZC Drainage of Amniotic Fluid, Therapeutic from Products of Conception, Via Natural or Artificial Opening (ICD-10-PCS; 2017-07-02)
PROC: 3E0R3BZ Introduction of Anesthetic Agent into Spinal Canal, Percutaneous Approach (ICD-10-PCS; 2017-07-02)
PROC: 00HU33Z Insertion of Infusion Device into Spinal Canal, Percutaneous Approach (ICD-10-PCS; 2017-07-02)
DX: O99.334 Smoking (tobacco) complicating childbirth (principal); F17.200 Nicotine dependence, unspecified, uncomplicated; Z3A.40 40 weeks gestation of pregnancy; Z37.0 Single live birth
CPT/HCPCS: 80307; 81001; 84112; 85025; 90707; 90715; 99283; G0481; J2405; J2590; J7120